=== PATIENT | male | born 1970 | race Caucasian/White ===

== ENCOUNTER → 2017-08-18 | Outpatient (CLI) | payer OTHER ==
[2017-08-18] MEDS: IOHEXOL 240 MG/ML 50ML VIAL. PO (09:11)
[2017-08-18] MEDS: IOHEXOL 300 MG/ML 100ML VIAL. IV (09:11)
== END | disposition home or self-care (01) ==
LOC: CT 07:23
DX: K92.1 Melena (principal); K42.9 Umbilical hernia without obstruction or gangrene; J84.10 Pulmonary fibrosis, unspecified
CPT/HCPCS: 74177; Q9966; Q9967